=== PATIENT | male | born 1965 ===

== ENCOUNTER 2017-06-12 09:53 | Emergency (ER) | payer SELFPAY ==
[2017-06-12 10:07] VITALS: BP 131/91; PULSE 90; TEMP 98; O2SAT 99
--- NOTE | 2017-06-12 10:09 | ED PDOC ---
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 He has had pain and muscle spasms to both calves and difficulty walking due to knee pain bilaterally since this happened yesterday. Patient took Naprosyn yesterday and today which provided minimal relief of pain. No chest pain, shortness of breath or dyspnea on exertion. Patient denies any numbness or tingling to lower extremities. PMD: none Past Medical History Reviewed: Historical Data, Nursing Documentation, Vital Signs Vital Signs: Last Vital Signs Temp 98 F 06/12/17 10:06 Pulse 90 06/12/17 10:06 Resp BP 131/91 H 06/12/17 10:06 Pulse Ox 99 06/12/17 10:06 - Medical History PMH: HTN - Surgical History Surgical History: Appendectomy - Family History Family History: States: No Known Family Hx - Living Arrangements Living Arrangements: With Family - Social History Current smoker - smoking cessation education provided: No Alcohol: None Drugs: Denies - Home Medications Home Medications: Ambulatory Orders Medication Instructions Recorded Cyclobenzaprine [Cyclobenzaprine 10 mg PO TID PRN #20 tab 06/12/17 HCl] Naproxen [Naprosyn] 500 mg PO BID #20 tab 06/12/17 traMADol [Ultram] 50 mg PO TID PRN #15 tab 06/12/17 - Allergies Allergies/Adverse Reactions: Allergies Allergy/AdvReac Type Severity Reaction Status Date / Time No Known Allergies Allergy Verified 06/12/17 10:04 Wells Criteria for PE - Wells Criteria for Pulmonary Embolism Clinical Signs and Symptoms of DVT: Yes P.E is #1 Diagnosis, or Equally Likely: No Heart Rate >100: No Immobilization at least 3 days;Surgery previous 4 weeks: No Previous, objectively diagnosed PE or DVT: No Hemoptysis: No Malignancy w/treatment within 6 months, or palliative: No Total Score: 3 Review of Systems Constitutional: Negative for: Fever Cardiovascular: Negative for: Chest Pain Respiratory: Negative for: Shortness of Breath, SOB with Exertion Gastrointestinal: Negative for: Nausea, Vomiting Musculoskeletal: Positive for: Leg Pain (bilateral knee and calf pain) Physical Exam - Reviewed Nursing Documentation Reviewed: Yes Vital Signs Reviewed: Yes - Physical Exam Appears: Positive for: Well, Non-toxic, No Acute Distress Skin: Negative for: Rash Eye Exam: Positive for: Normal appearance Cardiovascular/Chest: Positive for: Regular Rate, Rhythm Respiratory: Positive for: Normal Breath Sounds. Negative for: Respiratory Distress Back: Negative for: L CVA Tenderness, R CVA Tenderness, Vertebral Tenderness Extremity: Positive for: Other (Mild swelling and tenderness noted to left knee with full range of motion, right knee is unremarkable, there is tenderness to both calves bilaterally with mild swelling to calves bilaterally, normal distal sensation bilateral lower extremities) Neurologic/Psych: Positive for: Alert, Oriented - ECG O2 Sat by Pulse Oximetry: 99 Pulse Ox Interpretation: Normal - Other Rad b/l knee x-rays X-Ray: Interpreted by Me, Viewed By Me X-Ray Interpretation: no fx, no dis, mild degenerative changes doppler bilateral legs X-Ray: Read By Radiologist X-Ray Interpretation: no DVT bilaterally Medical Decision Making Medical Decision Makin-year-old male with bilateral lower extremity pain. Plan: Doppler both legs X-ray both knees Toradol IM PO tramadol and flexeril Patient is aware of all diagnostic testing results. All questions answered. Patient feels much better after medications administered ED. Prescriptions provided for tramadol, Naprosyn and Flexeril. Patient was referred to clinic for follow-up. Disposition - Clinical Impression Clinical Impression: Bilateral knee pain, Muscle strain, lower leg - Patient ED Disposition Is Patient to be Admitted: No Counseled Patient/Family Regarding: Studies Performed, Diagnosis, Need For Followup, Rx Given - Disposition Referrals: [facility] [Outside] Disposition: Routine/Home Disposition Time: 13:00 Condition: STABLE Additional Instructions: Take prescription medications as directed as needed for pain. Follow-up with clinic in 2-3 days. Prescriptions: Cyclobenzaprine [Cyclobenzaprine HCl] 10 mg PO TID PRN #20 tab PRN Reason: Muscle Spasm Naproxen [Naprosyn] 500 mg PO BID #20 tab traMADol [Ultram] 50 mg PO TID PRN #15 tab PRN Reason: Pain, Moderate (4-7) Instructions: Leg Pain (ED), Knee Pain (ED), Muscle Strain (ED) Forms: [facility] (Montserratian), [facility] ED School/Work Excuse Print Language: MOZAMBICAN
--- NOTE | 2017-06-12 12:56 | US ---
PROCEDURE: Bilateral lower extremity venous duplex Doppler. HISTORY: bilateral calf pain COMPARISON: None available. TECHNIQUE: Bilateral common femoral, superficial femoral, popliteal and posterior tibial veins were evaluated. Flow was assessed with color Doppler, compressibility, assessment of phasic flow and augmentation response. FINDINGS: COMMON FEMORAL VEIN: Right CFV: Unremarkable. Left CFV: Unremarkable. SUPERFICIAL FEMORAL VEIN: Right SFV: Unremarkable. Left SFV: Unremarkable. POPLITEAL VEIN: Right Popliteal: Unremarkable. Left Popliteal: Unremarkable. POSTERIOR TIBIAL VEIN: Right PTV: Unremarkable. Left PTV: Unremarkable. OTHER FINDINGS: Ovoid hypoechoic structures are avascular at soft tissues overlying the left calf suspicious for possible thrombosis varices or lymph nodes. Other etiologies are possible. . Bilateral inguinal lymph nodes are identified mildly enlarged a 2.3 cm at the left and 1.5 cm the right. IMPRESSION: 1. No ultrasound evidence to suggest deep venous thrombosis. 2. Mild inguinal lymphadenopathy, left greater than right. 3. Hypoechoic ovoid foci are seen superficial to the left calf incidentally which may reflect thrombosed varices or small lymph nodes but are nonspecific in appearance overall. The latter may be present as definitive tubular shaped varices are not clearly demonstrated by the technologist.
--- NOTE | 2017-06-13 07:59 | RAD ---
PROCEDURE: Bilateral Knee Radiographs. HISTORY: pain to both knees COMPARISON: None. FINDINGS: BONES: No acute fracture or destructive bony lesion identified bilaterally. JOINTS: Limited joint space narrowing seen in the medial as well as medial patellofemoral joint compartments compatible with mild degenerative joint disease. SOFT TISSUES: Right Knee: Normal. Left Knee: Normal. JOINT EFFUSION: Right Knee: None. Left Knee: None. OTHER FINDINGS: None. IMPRESSION: Limited degenerative joint disease. No acute fracture, subluxation or dislocation. No destructive bony lesion bilaterally.
== END 2017-06-12 13:10 | disposition home or self-care (01) ==
LOC: H.ER 09:53
DX: M25.562 Pain in left knee (principal); M25.561 Pain in right knee; S86.919A Strain of unspecified muscle(s) and tendon(s) at lower leg level, unspecified leg, initial encounter
CPT/HCPCS: 73560; 93970; 96372; 99283; J1885

== ENCOUNTER 2017-06-20 18:35 | Emergency (ER) | payer OTHER, SELFPAY ==
[2017-06-20 19:08] VITALS: BP 133/88; PULSE 99; RESP 20; TEMP 98; O2SAT 100
[2017-06-20] MEDS ORDERED: Sodium Chloride 0.9% 1,000 ML IV STA (22:29)
[2017-06-20 23:07] LABS: BASO % 0.7 % (0.0-2.0); EOS # 0.4 K/uL (0.0-0.7); EOS % 7.1 % (0.0-4.0); HEMOGLOBIN 14.6 g/dL (12.0-18.0); LYMPH % 31.6 % (20.0-40.0); MEAN CELL VOLUME 94.2 fl (80.0-94.0); MEAN CORPUSCULAR HEMOGLOBIN 31.4 pg (27.0-31.0); MEAN CORPUSCULAR HGB CONC 33.3 g/dL (33.0-37.0); MEAN PLATELET VOLUME 7.1 fl (7.2-11.7); MONO # 0.5 K/uL (0.0-0.8); MONO % 7.4 % (0.0-10.0); NEUT # 3.4 K/uL (1.8-7.0); NEUT % 53.2 % (50.0-75.0); NRBC % 0.1 % (0.0-0.0); RBC 4.64 Mil/uL (4.40-5.90); RED CELL DISTRIBUTION WIDTH 12.7 % (11.5-14.5); WHITE BLOOD COUNT 6.3 K/uL (4.8-10.8)
[2017-06-20 23:25] LABS: ALB/GLOB RATIO 1.3 (1.0-2.1); ALT/SGPT 46 U/L (21-72); AST/SGOT 30 U/L (17-59); BLOOD UREA NITROGEN 19 mg/dl (9-20); CALCIUM 9.3 mg/dL (8.4-10.2); GFR AFRICAN-AMERICAN > 60; GFR NON-AFRICAN AMERICAN > 60
--- NOTE | 2017-06-21 00:22 | ED PDOC ---
Lower Extremity Pain/Injury Time Seen by Provider: 06/20/17 21:24 Chief Complaint (Nursing): Lower Extremity Problem/Injury Past Medical History Vital Signs: Last Vital Signs Temp 98 F 06/20/17 18:56 Pulse 99 H 06/20/17 18:56 Resp 20 06/20/17 18:56 BP 133/88 06/20/17 18:56 Pulse Ox 100 06/20/17 18:56 - Medical History PMH: HTN - Surgical History Surgical History: Appendectomy - Home Medications Home Medications: Ambulatory Orders Medication Instructions Recorded Cyclobenzaprine [Cyclobenzaprine 10 mg PO TID PRN #20 tab 06/12/17 HCl] Naproxen [Naprosyn] 500 mg PO BID #20 tab 06/12/17 traMADol [Ultram] 50 mg PO TID PRN #15 tab 06/12/17 oxyCODONE/Acetaminophen [Percocet 1 ea PO Q6H PRN #15 tab 06/21/17 5/325 mg Tab] - Allergies Allergies/Adverse Reactions: Allergies Allergy/AdvReac Type Severity Reaction Status Date / Time No Known Allergies Allergy Verified 06/12/17 10:04 - Laboratory Results Result Diagrams: 06/20/17 23:03 06/20/17 23:03 - ECG O2 Sat by Pulse Oximetry: 100 Disposition - Clinical Impression Clinical Impression: Gastrocnemius muscle strain - Patient ED Disposition Is Patient to be Admitted: No Counseled Patient/Family Regarding: Diagnosis, Need For Followup, Rx Given - Disposition Disposition: Routine/Home Disposition Time: 00:21 Condition: GOOD Prescriptions: oxyCODONE/Acetaminophen [Percocet 5/325 mg Tab] 1 ea PO Q6H PRN #15 tab PRN Reason: Pain, Severe (8-10) Instructions: Muscle Strain (ED) Forms: [employer] (Maltese), [facility] ED School/Work Excuse Print Language: BULGARIAN
== END 2017-06-21 00:32 | disposition home or self-care (01) ==
LOC: H.ER 18:35
DX: S86.819A Strain of other muscle(s) and tendon(s) at lower leg level, unspecified leg, initial encounter (principal); X50.9XXA Other and unspecified overexertion or strenuous movements or postures, initial encounter; Y99.0 Civilian activity done for income or pay; I10 Essential (primary) hypertension
CPT/HCPCS: 80053; 82550; 85025; 96374; 99283; J1885; J7040

== ENCOUNTER 2017-07-05 14:51 | Inpatient (IN) | payer SELFPAY ==
--- NOTE | 2017-07-05 16:28 | ED PDOC ---
Lower Extremity Pain/Injury Time Seen by Provider: 07/05/17 15:56 Chief Complaint (Nursing): Lower Extremity Problem/Injury Chief Complaint (Provider): Left leg pain History Per: Patient History/Exam Limitations: no limitations Onset/Duration Of Symptoms: Days Current Symptoms Are (Timing): Still Present Additional History Per: Patient Additional Complaint(s): 52yo male, presents to ED with complaints of left calf pain and swelling for the past 20 days. Patient states he was evaluated at this facility twice and was informed he did not have a blood clot. He states last week, he was evaluated in his PMD Dr. Wu's office and had another US done, which indicated a DVT in his left lower extremity. He denies any chest pain, weakness , shortness of breath. He has no other medical complaints. Past Medical History Reviewed: Historical Data, Nursing Documentation, Vital Signs Vital Signs: Last Vital Signs Temp 98.6 F 07/05/17 15:34 Pulse 108 H 07/05/17 15:34 Resp 16 07/05/17 15:34 BP 143/88 07/05/17 15:34 Pulse Ox 99 07/05/17 15:34 - Medical History PMH: HTN - Surgical History Surgical History: Appendectomy - Family History Family History: States: No Known Family Hx - Living Arrangements Living Arrangements: With Family - Social History Current smoker - smoking cessation education provided: No Ex-Smoker (has not smoked in the last 12 months): No Drugs: Denies - Home Medications Home Medications: Ambulatory Orders Medication Instructions Recorded Cilostazol [Pletal] 100 mg PO BID 07/05/17 Clopidogrel [Plavix] 75 mg PO DAILY 07/05/17 Losartan [Cozaar] 50 mg PO BID 07/05/17 hydroCHLOROthiazide [Hydrodiuril] 25 mg PO DAILY 07/05/17 - Allergies Allergies/Adverse Reactions: Allergies Allergy/AdvReac Type Severity Reaction Status Date / Time No Known Allergies Allergy Verified 06/12/17 10:04 Review of Systems ROS Statement: Except As Marked, All Systems Reviewed And Found Negative Cardiovascular: Negative for: Chest Pain Respiratory: Negative for: Shortness of Breath Musculoskeletal: Positive for: Leg Pain (left calf pain) Physical Exam - Reviewed Nursing Documentation Reviewed: Yes Vital Signs Reviewed: Yes - Physical Exam Appears: Positive for: Non-toxic Head Exam: Positive for: ATRAUMATIC, NORMAL INSPECTION, NORMOCEPHALIC Skin: Positive for: Normal Color Eye Exam: Positive for: Normal appearance Neck: Positive for: Supple Cardiovascular/Chest: Positive for: Regular Rate, Rhythm Respiratory: Positive for: Normal Breath Sounds Pulses-Radial (L): 2+ Pulses-Radial (R): 2+ Gastrointestinal/Abdominal: Positive for: Normal Exam Back: Positive for: Normal Inspection Extremity: Positive for: Normal ROM, Calf Tenderness (left calf tenderness, associated swelling as well.), Other (ecchymosis noted near left ankle ). Negative for: Deformity Neurologic/Psych: Positive for: Alert, Oriented. Negative for: Motor/Sensory Deficits - Laboratory Results Result Diagrams: 07/05/17 16:45 07/05/17 16:45 - ECG O2 Sat by Pulse Oximetry: 99 (RA) Pulse Ox Interpretation: Normal Medical Decision Making Medical Decision Making: Impression: Left calf pain Differential: DVT plan: -- Labs -- US Doppler Lower extremity Time: 1804 US Lower Extremity FINDINGS: Confirmation of thrombus in the left popliteal vein. Thrombophlebitis affecting superficial veins left calf IMPRESSION: No significant interval change compared to the prior examination(s). Nonocclusive thrombus distal popliteal vein. Thrombophlebitis superficial calf veins. Time: 1820 Patient informed of US findings and will be admitted under hospitalist. Dr. Goel, hospitalist simulation specialist aware. Also verified with FP resident and patient does not follow up at [facility]. Scribe Attestation: Documented by Letitia Carbajal acting as a scribe for Kenna Abarca MD. Provider Scribe Attestation: All medical record entries made by the Scribe were at my direction and personally dictated by me. I have reviewed the chart and agree that the record accurately reflects my personal performance of the history, physical exam, medical decision making, and the department course for this patient. I have also personally directed, reviewed, and agree with the discharge instructions and disposition. Disposition - Disposition Forms: [employer] (Pashto)
[2017-07-05 16:50] LABS: BASO # 0.1 K/uL (0.0-0.2); BASO % 0.9 % (0.0-2.0); EOS # 0.2 K/uL (0.0-0.7); EOS % 2.2 % (0.0-4.0); HEMOGLOBIN 15.4 g/dL (12.0-18.0); LYMPH # 2.2 K/uL (1.0-4.3); LYMPH % 25.2 % (20.0-40.0); MEAN CORPUSCULAR HEMOGLOBIN 31.8 pg (27.0-31.0); MEAN CORPUSCULAR HGB CONC 34.2 g/dL (33.0-37.0); MEAN PLATELET VOLUME 7.2 fl (7.2-11.7); MONO # 0.6 K/uL (0.0-0.8); MONO % 6.4 % (0.0-10.0); NEUT # 5.8 K/uL (1.8-7.0); NEUT % 65.3 % (50.0-75.0); NRBC % 0.1 % (0.0-0.0); RBC 4.84 Mil/uL (4.40-5.90); RED CELL DISTRIBUTION WIDTH 12.6 % (11.5-14.5); WHITE BLOOD COUNT 8.9 K/uL (4.8-10.8)
[2017-07-05 16:59] LABS: BLOOD UREA NITROGEN 16 mg/dl (9-20); CALCIUM 9.9 mg/dL (8.4-10.2); GFR AFRICAN-AMERICAN > 60; GFR NON-AFRICAN AMERICAN > 60
[2017-07-05 17:15] LABS: PARTIAL THROMBOPLASTIN TIME 35.4 Seconds (25.6-37.1); PROTHROMBIN TIME 11.6 Seconds (9.8-13.1)
--- NOTE | 2017-07-05 17:51 | US ---
PROCEDURE: Resume HISTORY: left lower leg swelling COMPARISON: July 05, 2017. Time of the most recent examination: 08:47 06/12/2017 bilateral lower extremity duplex venous sonography. TECHNIQUE: Real-time ultrasound scan of the veins with color flow, spectral waveform analysis and compression FINDINGS: Confirmation of thrombus in the left popliteal vein. Thrombophlebitis affecting superficial veins left calf IMPRESSION: No significant interval change compared to the prior examination(s). Nonocclusive thrombus distal popliteal vein. Thrombophlebitis superficial calf veins.
[2017-07-05] MEDS ORDERED: Enoxaparin 80 mg Syringe SC STA (18:33)
--- NOTE | 2017-07-05 19:24 | CP.PCM.HP ---
History of Present Illness - History of Present Illness History of Present Illness: 52 yo male with history of HTN complained of pain and swelling on the left leg since a month ago. Denied having trauma or injury. He was seen in a clinic twice and was informed that he did not have a clot on the leg. However his leg remained swollen and painful so he saw Dr Wu last week and had an ultrasound done which turned positive for DVT. He denied having SOB but admitted having left sided chest pain on and off for some time. Present on Admission - Present on Admission Any Indicators Present on Admission: Yes History of DVT/PE: Yes History of Uncontrolled Diabetes: No Urinary Catheter: No Decubitus Ulcer Present: No Review of Systems - Review of Systems All systems: reviewed and no additional remarkable complaints except (aside from those mentioned above, 12 point system review were negative by me) Past Patient History - Tetanus Immunizations Tetanus Immunization: Unknown - Past Medical History & Family History Past Medical History?: No Past Family History: Reviewed and not pertinent - Past Social History Smoking Status: Never Smoked Alcohol: None Drugs: Denies Home Situation {Lives}: With Family - CARDIAC Hx Hypertension: Yes - PSYCHIATRIC Hx Substance Use: No - SURGICAL HISTORY Hx Appendectomy: Yes - ANESTHESIA Hx Anesthesia: Yes Hx Anesthesia Reactions: No Meds Allergies/Adverse Reactions: Allergies Allergy/AdvReac Type Severity Reaction Status Date / Time No Known Allergies Allergy Verified 06/12/17 10:04 Physical Exam - Constitutional Appears: No Acute Distress - Head Exam Head Exam: ATRAUMATIC - Eye Exam Eye Exam: absent: Scleral icterus - ENT Exam ENT Exam: Mucous Membranes Moist - Neck Exam Neck exam: Negative for: Meningismus - Respiratory Exam Respiratory Exam: absent: Rhonchi, Wheezes, Respiratory Distress - Cardiovascular Exam Cardiovascular Exam: REGULAR RHYTHM, +S1, +S2 - GI/Abdominal Exam GI & Abdominal Exam: Soft. absent: Tenderness - Rectal Exam Rectal Exam: Deferred - Extremities Exam Extremities exam: Positive for: calf tenderness (left leg), pedal edema (left leg), pedal pulses present - Back Exam Back exam: absent: tenderness - Neurological Exam Neurological exam: Alert, Oriented x3 - Psychiatric Exam Psychiatric exam: Normal Affect - Skin Skin Exam: Dry, Intact Results - Vital Signs Recent Vital Signs: Last Vital Signs Temp 98.6 F 07/05/17 15:34 Pulse 108 H 07/05/17 15:34 Resp 16 07/05/17 15:34 BP 143/88 07/05/17 15:34 Pulse Ox 99 07/05/17 18:31 - Labs Result Diagrams: 07/05/17 16:45 07/05/17 16:45 Labs: Laboratory Results - last 24 hr 07/05/17 07/05/17 07/05/17 16:45 16:45 16:45 WBC 8.9 RBC 4.84 Hgb 15.4 Hct 45.0 MCV 93.0 MCH 31.8 H MCHC 34.2 RDW 12.6 Plt Count 330 MPV 7.2 Neut % (Auto) 65.3 Lymph % (Auto) 25.2 [place] % (Auto) 6.4 Eos % (Auto) 2.2 Baso % (Auto) 0.9 Neut # (Auto) 5.8 Lymph # (Auto) 2.2 [place] # (Auto) 0.6 Eos # (Auto) 0.2 Baso # (Auto) 0.1 PT 11.6 INR 1.0 APTT 35.4 Sodium 142 Potassium 3.8 Chloride 101 Carbon Dioxide 26 Anion Gap 19 BUN 16 Creatinine 0.8 Est GFR ( Amer) > 60 Est GFR (Non-Af Amer) > 60 Random Glucose 95 Calcium 9.9 Assessment & Plan - Assessment and Plan (Free Text) Assessment: 52 yo male with history of HTN complained of pain and swelling on the left leg since a month ago. Denied having trauma or injury. He was seen in a clinic twice and was informed that he did not have a clot on the leg. However his leg remained swollen and painful so he saw Dr Wu last week and had an ultrasound done which turned positive for DVT. He denied having SOB but admitted having left sided chest pain on and off for some time. 1. DVT, Left Leg CT angio of chest Lovenox 70mg SC q 12hrs 2. HTN BP stable Losartan 50mg PO q 12hrs HCTZ 25mg PO daily
[2017-07-05] MEDS ORDERED: Sodium Chloride 0.9% 50 ML IV ONE (19:36)
[2017-07-05] MEDS ORDERED: Iodixanol 320 MG/ML 100 ML BOTTLE IV ONE (19:36)
--- NOTE | 2017-07-05 21:22 | CT ---
EXAM: CT Angiography Chest With Intravenous Contrast CLINICAL HISTORY: 52 years old, male; Abnormal findings; Other: Dvt left leg; Additional info: Chest pain TECHNIQUE: Axial computed tomographic angiography images of the chest with intravenous contrast using pulmonary embolism protocol. All CT scans at this facility use one or more dose reduction techniques, viz.: automated exposure control; ma/kV adjustment per patient size (including targeted exams where dose is matched to indication; i.e. head); or iterative reconstruction technique. MIP reconstructed images were created and reviewed. Coronal and sagittal reformatted images were created and reviewed. CONTRAST: 90 mL of [id number] administered intravenously. COMPARISON: No relevant prior studies available. FINDINGS: Pulmonary arteries: Filling defect within segmental branch of right pulmonary artery. Aorta: No aneurysm. No dissection. Lungs: Mild atelectasis/scarring. No consolidation. Few calcified granulomas. Pleural space: No significant effusion. No pneumothorax. Heart: No cardiomegaly. No significant pericardial effusion. Bones/joints: No acute fracture. Soft tissues: Unremarkable. Lymph nodes: No pathologically enlarged lymph nodes. IMPRESSION: 1. Pulmonary emboli. 2. Incidental/non-acute findings are described above.
[2017-07-05] MEDS: Enoxaparin 80 mg Syringe SC SCH (23:00)
[2017-07-05 23:58] VITALS: RESP 18
[2017-07-06 05:34] LABS: INR 1.1 (0.9-1.2); PARTIAL THROMBOPLASTIN TIME 42.7 Seconds (25.6-37.1); PROTHROMBIN TIME 11.9 Seconds (9.8-13.1)
[2017-07-06 05:38] LABS: BLOOD UREA NITROGEN 19 mg/dl (9-20); CALCIUM 9.5 mg/dL (8.4-10.2); GFR AFRICAN-AMERICAN > 60; GFR NON-AFRICAN AMERICAN > 60
[2017-07-06 07:44] LABS: BASO % 0.2 % (0.0-2.0); EOS # 0.3 K/uL (0.0-0.7); HEMOGLOBIN 14.9 g/dL (12.0-18.0); LYMPH # 1.9 K/uL (1.0-4.3); LYMPH % 26.9 % (20.0-40.0); MEAN CELL VOLUME 92.6 fl (80.0-94.0); MEAN CORPUSCULAR HGB CONC 34.5 g/dL (33.0-37.0); MEAN PLATELET VOLUME 7.4 fl (7.2-11.7); MONO # 0.5 K/uL (0.0-0.8); MONO % 7.3 % (0.0-10.0); NEUT # 4.4 K/uL (1.8-7.0); NEUT % 61.6 % (50.0-75.0); NRBC % 0.2 % (0.0-0.0); RBC 4.66 Mil/uL (4.40-5.90); RED CELL DISTRIBUTION WIDTH 12.4 % (11.5-14.5); WHITE BLOOD COUNT 7.1 K/uL (4.8-10.8)
[2017-07-06] MEDS: Enoxaparin 80 mg Syringe SC SCH (08:50)
[2017-07-06] MEDS ORDERED: Pantoprazole 40 mg EC Tab PO SCH (09:00)
--- NOTE | 2017-07-06 11:53 | CP.PCM.DIS ---
Provider - Provider Date of Admission: 07/05/17 18:33 Attending physician: Robert Goel MD Primary care physician: Dr Yañez at [facility]. Consults: None. Time Spent in preparation of Discharge (in minutes): 30 Diagnosis - Discharge Diagnosis (1) DVT (deep venous thrombosis) Status: Acute Comment: -Pt initiated on Heparin SC and PO Warfarin. Pt will f/u on Tuesday with Dr Agustin to evaluated PT/INR level. -Pt will have blood drawn for PT/INR studies on tuesday. -Pt reinforced on medication adherence. (2) Pulmonary embolism Status: Acute Comment: -Pt initiated on Heparin SC and PO Warfarin. Pt will f/u on Tuesday with Dr Agustin to evaluated PT/INR level. -Pt will have blood drawn for PT/INR studies on tuesday. -Pt reinforced on medication adherence. (3) Hypertension Status: Acute Comment: -Continue Losartan and HCTZ. -F/U with PMD. Hospital Course - Lab Results Lab Results: Most Recent Lab Values WBC 7.1 K/uL (4.8-10.8) 07/06/17 04:20 RBC 4.66 Mil/uL (4.40-5.90) 07/06/17 04:20 Hgb 14.9 g/dL (12.0-18.0) 07/06/17 04:20 Hct 43.1 % (35.0-51.0) 07/06/17 04:20 MCV 92.6 fl (80.0-94.0) 07/06/17 04:20 MCH 32.0 pg (27.0-31.0) H 07/06/17 04:20 MCHC 34.5 g/dL (33.0-37.0) 07/06/17 04:20 RDW 12.4 % (11.5-14.5) 07/06/17 04:20 Plt Count 309 K/uL (130-400) 07/06/17 04:20 MPV 7.4 fl (7.2-11.7) 07/06/17 04:20 Neut % (Auto) 61.6 % (50.0-75.0) 07/06/17 04:20 Lymph % (Auto) 26.9 % (20.0-40.0) 07/06/17 04:20 [place] % (Auto) 7.3 % (0.0-10.0) 07/06/17 04:20 Eos % (Auto) 4.0 % (0.0-4.0) 07/06/17 04:20 Baso % (Auto) 0.2 % (0.0-2.0) 07/06/17 04:20 Neut # (Auto) 4.4 K/uL (1.8-7.0) 07/06/17 04:20 Lymph # (Auto) 1.9 K/uL (1.0-4.3) 07/06/17 04:20 [place] # (Auto) 0.5 K/uL (0.0-0.8) 07/06/17 04:20 Eos # (Auto) 0.3 K/uL (0.0-0.7) 07/06/17 04:20 Baso # (Auto) 0.0 K/uL (0.0-0.2) 07/06/17 04:20 PT 11.9 Seconds (9.8-13.1) 07/06/17 04:20 INR 1.1 (0.9-1.2) 07/06/17 04:20 APTT 42.7 Seconds (25.6-37.1) H D 07/06/17 04:20 Sodium 141 mmol/l (132-148) 07/06/17 04:20 Potassium 4.0 MMOL/L (3.6-5.0) 07/06/17 04:20 Chloride 102 mmol/L (98-107) 07/06/17 04:20 Carbon Dioxide 28 mmol/L (22-30) 07/06/17 04:20 Anion Gap 15 (10-20) 07/06/17 04:20 BUN 19 mg/dl (9-20) 07/06/17 04:20 Creatinine 0.9 mg/dl (0.8-1.5) 07/06/17 04:20 Est GFR ( Amer) > 60 07/06/17 04:20 Est GFR (Non-Af Amer) > 60 07/06/17 04:20 Random Glucose 96 mg/dL (75-110) 07/06/17 04:20 Calcium 9.5 mg/dL (8.4-10.2) 07/06/17 04:20 Troponin I < 0.0120 ng/mL (0.00-0.120) 07/05/17 20:46 - Hospital Course Hospital Course: 52 y/o M with a PMHx of HTN was admitted for evaluation and management of L DVT. Pt reports having a minor accident on 06/11/17 after lifting/pushing a very heavy box, pt felt a sharp electrical pain on both legs. Since them pt has been feeling pain in L lower leg, pt was evaluated twice at ER with US doppler without identification of DVT. Pt visited Dr Wu last week who ordered a repeat US doppler. This study was performed today and detected a DVT. - US Duplex showed a non-occlusive thrombus distal L popliteal vein and thrombophlebitis superficial calf veins. - CT Chest showed a pulmonary emboli within segmental branch of R pulmonary artery. Pt was initiated on Heparin SC Q12 yesterday and PO Warfarin today. Pt will get blood drawn for PT/IN in 2 days and will f/u with Dr Agustin at [facility] for evaluation of Warfarin therapeutic dose. Pt discharged in stable condition. Warfarin for 5 days and Heparin SC for 7 days prescribed. Pt will come to hospital daily for Heparin administration. - Date & Time of H&P Date of H&P: 07/05/17 Time of H&P: 19:17 Discharge Exam - Head Exam Head Exam: ATRAUMATIC - Eye Exam Eye Exam: EOMI, Normal appearance - ENT Exam ENT Exam: Mucous Membranes Moist - Neck Exam Neck exam: Full Rom - Respiratory Exam Respiratory Exam: Clear to PA & Lateral, NORMAL BREATHING PATTERN, UNREMARKABLE - Cardiovascular Exam Cardiovascular Exam: REGULAR RHYTHM, +S1, +S2 - GI/Abdominal Exam GI & Abdominal Exam: Normal Bowel Sounds, Soft. absent: Distended, Guarding - Extremities Exam Additional comments: R Lower EXT: presence of small scattered ecchymosis on R foot. No tenderness over popliteal fossa. L Lower EXT: presence of small scattered ecchymosis on L foot, presence of muscle strain (~2cm circumference swelling) over L calf area, mild tenderness on medial calf. No tenderness over lateral aspect and most of calf muscle. No tenderness over popliteal fossa. - Neurological Exam Neurological exam: Alert, Oriented x3 - Psychiatric Exam Psychiatric exam: Normal Mood Discharge Plan - Discharge Medications Prescriptions: Enoxaparin [Lovenox] 100 mg SQ DAILY #7 syr Warfarin [Coumadin] 5 mg PO 1800 #5 tab - Follow Up Plan Condition: GOOD Disposition: HOME/ ROUTINE Instructions: Warfarin (By mouth), Pulmonary Embolism (DC), Deep Venous Thrombosis (DC) Additional Instructions: -Please follow-up with Dr Agustin at [facility] Clinic on Tuesday07/08/17 at 3pm. -Please come to the hospital every day for Heparin Injection administration. -Please take Warfarin daily as directed. - -Por favor atienda a hernandez hillary con Dr Agustin el viernes a las 3pm. -Venir al hospital a diario para la administracion de la injeccion de Heparin. Por favor markir crystal. -[facility] via oral a diario josiah se le fue instruido. Referrals: [facility] [place] [Outside]
[2017-07-06 13:20] VITALS: BP 120/77; PULSE 88; TEMP 97.3; O2SAT 96
== END 2017-07-06 15:26 | disposition home or self-care (01) | DRG 543 ==
LOC: H.ER 14:51 → H.ERHOLD 18:33 → H.TEL 22:07
DX: I80.02 Phlebitis and thrombophlebitis of superficial vessels of left lower extremity (principal); I26.99 Other pulmonary embolism without acute cor pulmonale; I10 Essential (primary) hypertension; Z79.02 Long term (current) use of antithrombotics/antiplatelets

== ENCOUNTER 2017-07-14 09:16 | Inpatient (IN) | payer SELFPAY ==
[2017-07-14 09:35] VITALS: BMI 30.2
--- NOTE | 2017-07-14 10:00 | ED PDOC ---
Syncope/Near Syncope/Dizziness Time Seen by Provider: 07/14/17 09:44 Chief Complaint (Nursing): Dizziness/Lightheaded History Per: Patient Onset/Duration Of Symptoms: Days (1) Current Symptoms Are (Timing): Still Present Possible Causative Factor(s): Vertigo Fall Associated With With Symptoms: No Severity: Moderate Pain Scale Rating Of: 1 Additional Complaint(s): Dizziness assoc with nausea since this AM Assoc with headache. Dizziness worse with change in head podition. Denies, chest pain, palpitations or SOB. On Coumadin for recently dx'ed DVT/PE - Risk Factors PE Risk Factors: Pos: Previous DVT, Previous PE Past Medical History Vital Signs: Last Vital Signs Temp Pulse 93 H 07/14/17 09:36 Resp 19 07/14/17 09:36 BP 138/80 07/14/17 09:36 Pulse Ox 98 07/14/17 09:36 - Medical History PMH: Deep Vein Thrombosis, HTN, Hypercholesterolemia, Pulmonary Embolism Denies: Chronic Kidney Disease - Surgical History Surgical History: Appendectomy - Family History Family History: States: Unknown Family Hx - Home Medications Home Medications: Ambulatory Orders Medication Instructions Recorded Cilostazol [Pletal] 100 mg PO BID 07/05/17 Clopidogrel [Plavix] 75 mg PO DAILY 07/05/17 Losartan [Cozaar] 50 mg PO BID 07/05/17 hydroCHLOROthiazide [Hydrodiuril] 25 mg PO DAILY 07/05/17 Enoxaparin [Lovenox] 100 mg SQ DAILY #7 syr 07/06/17 Warfarin [Coumadin] 5 mg PO 1800 #5 tab 07/06/17 - Allergies Allergies/Adverse Reactions: Allergies Allergy/AdvReac Type Severity Reaction Status Date / Time No Known Allergies Allergy Verified 06/12/17 10:04 Review of Systems ROS Statement: Except As Marked, All Systems Reviewed And Found Negative Cardiovascular: Negative for: Chest Pain, Palpitations Respiratory: Negative for: Shortness of Breath Gastrointestinal: Negative for: Nausea, Vomiting Neurological: Positive for: Headache, Dizziness Physical Exam - Reviewed Nursing Documentation Reviewed: Yes Vital Signs Reviewed: Yes - Physical Exam Appears: Positive for: Non-toxic, No Acute Distress Head Exam: Positive for: ATRAUMATIC, NORMAL INSPECTION, NORMOCEPHALIC Skin: Positive for: Normal Color, Warm, DRY Eye Exam: Positive for: EOMI, Normal appearance, PERRL ENT: Positive for: Normal ENT Inspection Neck: Positive for: Normal, Painless ROM Cardiovascular/Chest: Positive for: Regular Rate, Rhythm Respiratory: Positive for: CNT, Normal Breath Sounds Gastrointestinal/Abdominal: Positive for: Normal Exam, Bowel Sounds, Soft Back: Positive for: Normal Inspection Extremity: Positive for: Normal ROM. Negative for: Calf Tenderness, Swelling Neurologic/Psych: Positive for: Alert, Oriented - Laboratory Results Result Diagrams: 07/14/17 10:15 07/14/17 10:15 - ECG O2 Sat by Pulse Oximetry: 98 Disposition - Clinical Impression Clinical Impression: Dizziness, Coagulopathy - Patient ED Disposition Is Patient to be Admitted: Yes - Disposition Disposition Time: 12:01 Condition: FAIR Forms: [employer] (Pashto) - Pt Status Changed To: Hospital Disposition Of: Observation - POA Present On Arrival: None
[2017-07-14 10:34] LABS: BASO # 0.1 K/uL (0.0-0.2); BASO % 1.1 % (0.0-2.0); EOS # 0.3 K/uL (0.0-0.7); EOS % 5.3 % (0.0-4.0); HEMOGLOBIN 14.9 g/dL (12.0-18.0); LYMPH # 1.5 K/uL (1.0-4.3); LYMPH % 27.8 % (20.0-40.0); MEAN CELL VOLUME 92.5 fl (80.0-94.0); MEAN CORPUSCULAR HEMOGLOBIN 32.1 pg (27.0-31.0); MEAN CORPUSCULAR HGB CONC 34.8 g/dL (33.0-37.0); MEAN PLATELET VOLUME 7.4 fl (7.2-11.7); MONO # 0.5 K/uL (0.0-0.8); MONO % 8.8 % (0.0-10.0); NEUT # 3.1 K/uL (1.8-7.0); NRBC % 0.2 % (0.0-0.0); RBC 4.65 Mil/uL (4.40-5.90); RED CELL DISTRIBUTION WIDTH 12.9 % (11.5-14.5); WHITE BLOOD COUNT 5.4 K/uL (4.8-10.8)
--- NOTE | 2017-07-14 10:42 | CT ---
PROCEDURE: CT HEAD WITHOUT CONTRAST. HISTORY: r/o bleed COMPARISON: None available. TECHNIQUE: Axial computed tomography images were obtained through the head/brain without intravenous contrast. Radiation dose: Total exam DLP = 857.7 mGy-cm. This CT exam was performed using one or more of the following dose reduction techniques: Automated exposure control, adjustment of the mA and/or kV according to patient size, and/or use of iterative reconstruction technique. FINDINGS: HEMORRHAGE: No intracranial hemorrhage. BRAIN: No mass effect or edema. No atrophy or chronic microvascular ischemic changes. VENTRICLES: Unremarkable. No hydrocephalus. CALVARIUM: Unremarkable. PARANASAL SINUSES: Unremarkable as visualized. No significant inflammatory changes. MASTOID AIR CELLS: Unremarkable as visualized. No inflammatory changes. OTHER FINDINGS: None. IMPRESSION: No acute intracranial pathology.
[2017-07-14 10:58] LABS: ALB/GLOB RATIO 1.3 (1.0-2.1); ALT/SGPT 197 U/L (21-72); AST/SGOT 87 U/L (17-59); BLOOD UREA NITROGEN 23 mg/dl (9-20); CALCIUM 8.8 mg/dL (8.4-10.2); GFR AFRICAN-AMERICAN > 60; GFR NON-AFRICAN AMERICAN > 60
[2017-07-14 11:03] LABS: INR 4.9 (0.9-1.2); PROTHROMBIN TIME 56.5 Seconds (9.8-13.1)
--- NOTE | 2017-07-14 14:19 | CP.PCM.HP ---
History of Present Illness - History of Present Illness History of Present Illness: CC: Dizziness HPI: 52 y/o man w/ pmh of DVT/PE 05/2017 and 07/05/2017 and HTN presents to ED w / dizziness. The patient reports dizziness started this morning when he woke up. Patient reports associated pulsating headache, sweating, fleeting palpitation, and nausea but no vomiting. The patient took tylenol w/ mild relief. The patient is on warfarin 5 mg daily and completed course of lovenox 100 mg SC yesterday. The patient denies epistaxis, bleeding form gums, hemoptysis, hematuria, hematochezia, or melena. The patient reports mild left calf pain which is improved but still requires crutches for assistance to ambulate. The patient was discharged 07/06/2017 for DVT/PE and bridged to warfarin w/ lovenox. The patient has no other complaints. The patient denies SOB, chest pain, abdominal pain, dysuria, or fever. PMD: [facility] (saw Dr. Foster 07/13/2017) PMH: DVT/PE 05/2017 and 07/05/2017 and HTN allergies: NKDA meds: HCTZ 25 mg PO daily, losartan 50 mg PO daily, warfarin 5 mg PO daily PSH: appendectomy in childhood FAM: father 78 y/o HTN, mother 70 y/o healthy SOC: denies smoking, alcohol, and drugs ROS: 12 points assessed and negative unless otherwise reported in HPI ED course: vitals: 97.0 F, 93 beats/min, 138/80 mm Hg, O2 98% RA CBC: 5.4>14.9/43.0<271 CMP: 140/4.4, 102/25, 23/0.7, glucose 94, AST 84, ALT 197, alk phos 69 PT: 56.5 INR: 4.9 EKG: NSR, no acute ST elevation/depression, no prolonged QTc, QRS, RI, no T wave inversion Head CT w/o contrast: no acute intracranial pathology, no intracranial hemorrhage given meclizine 25 mg PO once Present on Admission - Present on Admission Any Indicators Present on Admission: Yes History of DVT/PE: Yes History of Uncontrolled Diabetes: No Urinary Catheter: No Decubitus Ulcer Present: No Review of Systems - Review of Systems All systems: reviewed and no additional remarkable complaints except - Constitutional Constitutional: Headache. absent: Fever - EENT Eyes: Blurred Vision Nose/Mouth/Throat: absent: Epistaxis - Cardiovascular Cardiovascular: Palpitations. absent: Chest Pain, Leg Edema - Respiratory Respiratory: absent: Cough, Dyspnea, Hemoptysis, Wheezing - Gastrointestinal Gastrointestinal: Nausea. absent: Coffee Ground Emesis, Diarrhea, Hematemesis, Hematochezia, Melena, Vomiting - Genitourinary Genitourinary: absent: Dysuria, Hematuria - Musculoskeletal Additional comments: reports mild left calf pain (chronic) - Integumentary Integumentary: absent: Rash - Neurological Neurological: As Per HPI, Dizziness, Headaches Past Patient History - Tetanus Immunizations Tetanus Immunization: Unknown - Past Medical History & Family History Past Medical History?: Yes - Past Social History Smoking Status: Never Smoked - CARDIAC Hx Hypercholesterolemia: Yes Hx Hypertension: Yes - PULMONARY Hx Pulmonary Embolism: Yes - NEUROLOGICAL Hx Neurological Disorder: No - HEENT Hx HEENT Problems: No - RENAL Hx Chronic Kidney Disease: No - ENDOCRINE/METABOLIC Hx Endocrine Disorders: No - HEMATOLOGICAL/ONCOLOGICAL Hx Blood Disorders: No - INTEGUMENTARY Hx Dermatological Problems: No - MUSCULOSKELETAL/RHEUMATOLOGICAL Hx Musculoskeletal Disorders: No Hx Falls: No - GASTROINTESTINAL Hx Gastrointestinal Disorders: No - GENITOURINARY/GYNECOLOGICAL Hx Genitourinary Disorders: No - PSYCHIATRIC Hx Emotional Abuse: No Hx Physical Abuse: No Hx Substance Use: No - SURGICAL HISTORY Hx Appendectomy: Yes - ANESTHESIA Hx Anesthesia: Yes Hx Anesthesia Reactions: No Meds Allergies/Adverse Reactions: Allergies Allergy/AdvReac Type Severity Reaction Status Date / Time No Known Allergies Allergy Verified 06/12/17 10:04 Physical Exam - Constitutional Appears: No Acute Distress - Head Exam Head Exam: ATRAUMATIC, NORMAL INSPECTION, NORMOCEPHALIC - Eye Exam Eye Exam: EOMI, Normal appearance, PERRL. absent: Scleral icterus Pupil Exam: NORMAL ACCOMODATION, PERRL - ENT Exam ENT Exam: Mucous Membranes Moist - Neck Exam Neck exam: Positive for: Full Rom. Negative for: Tenderness - Respiratory Exam Respiratory Exam: Clear to Auscultation Bilateral. absent: Decreased Breath Sounds, Rales, Rhonchi, Wheezes, Respiratory Distress - Cardiovascular Exam Cardiovascular Exam: REGULAR RHYTHM. absent: Tachycardia - GI/Abdominal Exam GI & Abdominal Exam: Normal Bowel Sounds, Soft. absent: Distended, Tenderness - Extremities Exam Extremities exam: Positive for: calf tenderness Additional comments: mild left calf tenderness (chronic) - Back Exam Back exam: absent: rash noted - Neurological Exam Neurological exam: Alert, CN II-XII Intact, Oriented x3 Additional comments: requires crutches for assistance in ambulation - Skin Skin Exam: Dry, Intact, Normal Color, Warm Results - Vital Signs Recent Vital Signs: Last Vital Signs Temp 97 F L 07/14/17 12:49 Pulse 82 07/14/17 12:49 Resp 18 07/14/17 12:49 BP 129/94 H 07/14/17 12:49 Pulse Ox 98 07/14/17 12:49 - Labs Result Diagrams: 07/14/17 10:15 07/14/17 10:15 Labs: Laboratory Results - last 24 hr 07/14/17 07/14/17 07/14/17 10:15 10:15 10:15 WBC 5.4 RBC 4.65 Hgb 14.9 Hct 43.0 MCV 92.5 MCH 32.1 H MCHC 34.8 RDW 12.9 Plt Count 271 MPV 7.4 Neut % (Auto) 57.0 Lymph % (Auto) 27.8 [place] % (Auto) 8.8 Eos % (Auto) 5.3 H Baso % (Auto) 1.1 Neut # (Auto) 3.1 Lymph # (Auto) 1.5 [place] # (Auto) 0.5 Eos # (Auto) 0.3 Baso # (Auto) 0.1 PT 56.5 H* D INR 4.9 H D Sodium 140 Potassium 4.4 Chloride 102 Carbon Dioxide 25 Anion Gap 17 BUN 23 H Creatinine 0.7 L Est GFR ( Amer) > 60 Est GFR (Non-Af Amer) > 60 Random Glucose 94 Calcium 8.8 Total Bilirubin 0.7 AST 87 H D ALT 197 H D Alkaline Phosphatase 69 Total Protein 7.2 Albumin 4.0 Globulin 3.2 Albumin/Globulin Ratio 1.3 Assessment & Plan - Assessment and Plan (Free Text) Assessment: 52 y/o man w/ pmh of DVT/PE 05/2017 and 07/05/2017 and HTN presents to ED w/ dizziness Plan: Dizziness - reports symptoms this morning - vitals: 97.0 F, 93 beats/min, 138/80 mm Hg, O2 98% RA - CBC: 5.4>14.9/43.0<271 - CMP: 140/4.4, 102/25, 23/0.7, glucose 94, AST 84, ALT 197, alk phos 69 - PT: 56.5 - INR: 4.9 - EKG: NSR, no acute ST elevation/depression, no prolonged QTc, QRS, RI, no T wave inversion - Head CT w/o contrast: no acute intracranial pathology, no intracranial hemorrhage - given meclizine 25 mg PO once - admit to [facility] - orthostatic BP - f/u repeat EKG - monitor for acute changes DVT/PE - patient has history of DVT/PE 05/2017 and 07/05/2017 - on warfarin 5 mg daily - completed lovenox 100 mg SC bridge to warfarin yesterday 07/13/2017 - INR 4.9, supratherapeutic - hold warfarin - f/u PT/INR - monitor for acute changes HTN - controlled w/ medication - c/w HCTZ 25 mg PO daily, losartan 50 mg PO daily - monitor for acute changes Deconditioning - requires crutches for ambulation - physical therapy consult ordered Prophylactic measures - DVT: anticoagulation held for now due to supratherapeutic INR
[2017-07-15 06:42] LABS: BASO % 0.5 % (0.0-2.0); EOS # 0.3 K/uL (0.0-0.7); EOS % 5.9 % (0.0-4.0); HEMOGLOBIN 15.6 g/dL (12.0-18.0); LYMPH # 1.7 K/uL (1.0-4.3); LYMPH % 28.7 % (20.0-40.0); MEAN CELL VOLUME 92.1 fl (80.0-94.0); MEAN CORPUSCULAR HEMOGLOBIN 31.5 pg (27.0-31.0); MEAN CORPUSCULAR HGB CONC 34.2 g/dL (33.0-37.0); MEAN PLATELET VOLUME 7.5 fl (7.2-11.7); MONO # 0.4 K/uL (0.0-0.8); MONO % 6.7 % (0.0-10.0); NEUT # 3.4 K/uL (1.8-7.0); NEUT % 58.2 % (50.0-75.0); NRBC % 0.1 % (0.0-0.0); RBC 4.94 Mil/uL (4.40-5.90); RED CELL DISTRIBUTION WIDTH 12.6 % (11.5-14.5); WHITE BLOOD COUNT 5.8 K/uL (4.8-10.8)
[2017-07-15 06:50] LABS: INR 3.8 (0.9-1.2); PARTIAL THROMBOPLASTIN TIME 66.9 Seconds (25.6-37.1)
[2017-07-15 06:54] LABS: BLOOD UREA NITROGEN 20 mg/dl (9-20); CALCIUM 9.7 mg/dL (8.4-10.2); GFR AFRICAN-AMERICAN > 60; GFR NON-AFRICAN AMERICAN > 60
--- NOTE | 2017-07-15 09:00 | CP.PCM.PN ---
Subjective - Date & Time of Evaluation Date of Evaluation: 07/15/17 Time of Evaluation: 06:55 - Subjective Subjective: Patient seen and examined this morning bedside. There are no acute events overnight, NAD. The patient reports dizziness does not occur while laying down , occurs only when sitting up. The patient reports left calf tenderness is the same chronic pain. The patient has no other complaints. Objective - Vital Signs/Intake and Output Vital Signs (last 24 hours): Temp Pulse Resp BP Pulse Ox 97.7 F 76 18 109/72 96 07/15/17 08:05 07/15/17 08:05 07/15/17 08:05 07/15/17 08:50 07/15/17 08:05 - Medications Medications: Current Medications Acetaminophen (Tylenol 325mg Tab) 650 mg PO Q6 PRN PRN Reason: Headache Hydrochlorothiazide (Hydrodiuril) 25 mg PO DAILY [facility] Last Admin: 07/15/17 08:50 Dose: 25 mg Losartan Potassium (Cozaar) 50 mg PO BID [facility] Last Admin: 07/15/17 08:50 Dose: 50 mg - Labs Labs: 07/15/17 05:00 07/15/17 05:00 PT 43.0 Seconds (9.8-13.1) H* D 07/15/17 05:00 INR 3.8 (0.9-1.2) H D 07/15/17 05:00 APTT 66.9 Seconds (25.6-37.1) H 07/15/17 05:00 - Constitutional Appears: Non-toxic, No Acute Distress - Head Exam Head Exam: ATRAUMATIC, NORMAL INSPECTION, NORMOCEPHALIC - Eye Exam Eye Exam: EOMI, Normal appearance, PERRL Pupil Exam: NORMAL ACCOMODATION - ENT Exam ENT Exam: Mucous Membranes Moist - Neck Exam Neck Exam: Full ROM. absent: Tenderness - Respiratory Exam Respiratory Exam: Clear to Ausculation Bilateral, NORMAL BREATHING PATTERN. absent: Decreased Breath Sounds, Rales, Rhonchi, Wheezes, Respiratory Distress - Cardiovascular Exam Cardiovascular Exam: REGULAR RHYTHM. absent: Tachycardia - GI/Abdominal Exam GI & Abdominal Exam: Soft, Normal Bowel Sounds. absent: Distended, Tenderness - Extremities Exam Extremities Exam: Calf Tenderness, Full ROM. absent: Pedal Edema Additional comments: mild left calf tenderness (chronic) - Neurological Exam Neurological Exam: Alert, Awake, Oriented x3 Additional comments: requires crutches for assistance in ambulation - Skin Skin Exam: Dry, Intact, Normal Color, Warm Assessment and Plan - Assessment and Plan (Free Text) Assessment: 52 y/o man w/ pmh of DVT/PE 05/2017 and 07/05/2017 and HTN presents to ED w/ dizziness Plan: Dizziness - possibly secondary to vestibular pathology, benign positional paroxysmal vertigo vs central vertigo - CBC: 5.8>15.6/45.5<283 - CMP: 140/4.0, 99/27, 20/0.9, glucose 94 - PT: 43.0 - INR: 3.8 - EKG: NSR, no acute ST elevation/depression, no prolonged QTc, QRS, AR, no T wave inversion - Head CT w/o contrast: no acute intracranial pathology, no intracranial hemorrhage - given meclizine 25 mg PO once - c/w meclizine 25 mg PO TID - orthostatic BP WNL - carotid artery US: normal duplex doppler of the cervical carotid and vertebral arteries - neurology consulted, Dr. Chua, recommendations appreciated - f/u repeat EKG - f/u folate, vit B12, TSH, vit D25-OH - f/u echo - monitor for acute changes DVT/PE - patient has history of DVT/PE 05/2017 and 07/05/2017 - on warfarin 5 mg daily - completed lovenox 100 mg SC bridge to warfarin 07/13/2017 - INR 3.8, remains supratherapeutic - hold warfarin - f/u PT/INR - monitor for acute changes - patient to complete 3 months of anticoagulation - DVT due to distal left lower extremity - no work up for hypercoagulable state due to 1st event of provoked DVT/PE (work -related trauma in 05/2017) HTN - controlled w/ medication - c/w HCTZ 25 mg PO daily, losartan 50 mg PO daily - monitor for acute changes Deconditioning - requires crutches for ambulation - physical therapy consult ordered Prophylactic measures - DVT: anticoagulation held for now due to supratherapeutic INR
--- NOTE | 2017-07-15 13:20 | US ---
PROCEDURE: Duplex ultrasound of the carotid and vertebral arteries. HISTORY: Dizziness, history of unprovoked dvt COMPARISON: None available. TECHNIQUE: Grayscale and duplex Doppler evaluation of the cervical carotid and vertebral arteries were performed. The common carotid, carotid bifurcations and cervical ICA and proximal ECA were evaluated. The vertebral arteries were evaluated for gross patency and direction. FINDINGS: RIGHT CAROTID ARTERIES: Common Carotid Artery: Normal. Maximal flow velocity of 70.3 cm/s. Carotid Bifurcation: Normal. Internal Carotid Artery:Normal. Maximal flow velocity of 82.0 cm/s. External Carotid Artery (proximal branches): Normal. Maximal flow velocity of 92.2 cm/s. ICA/CCA Ratio: 1.2 LEFT CAROTID ARTERIES: Common Carotid Artery: Normal. Maximal flow velocity of 78.5 cm/s. Carotid Bifurcation: Normal. Internal Carotid Artery:Normal. Maximal flow velocity of 86.0 cm/s. External Carotid Artery (proximal branches): Normal. Maximal flow velocity of 92.7 cm/s. ICA/CCA Ratio: 1.1 VERTEBRAL ARTERIES: Right Vertebral Artery: Patent. Antegrade flow. Left Vertebral Artery: Patent. Antegrade flow. OTHER FINDINGS: None. IMPRESSION: Normal Duplex Doppler of the cervical carotid and vertebral arteries.
--- NOTE | 2017-07-15 23:50 | CARD ---
APPROVED REPORT EKG Measurement Heart [id number] <Conclusion> Normal sinus rhythm Normal ECG
[2017-07-16 08:02] VITALS: RESP 19; TEMP 97.3; O2SAT 96
--- NOTE | 2017-07-16 09:23 | CP.PCM.PN ---
Subjective - Date & Time of Evaluation Date of Evaluation: 07/16/17 Time of Evaluation: 08:25 - Subjective Subjective: Patient seen and examined this morning bedside. There are no acute events overnight, NAD. The patient reports dizziness is resolved this morning. The patient reports left calf tenderness is the same chronic pain. The patient has no other complaints. Objective - Vital Signs/Intake and Output Vital Signs (last 24 hours): Temp Pulse Resp BP Pulse Ox 97.3 F L 83 19 132/82 96 07/16/17 08:01 07/16/17 08:57 07/16/17 08:01 07/16/17 08:57 07/16/17 08:01 - Medications Medications: Current Medications Acetaminophen (Tylenol 325mg Tab) 650 mg PO Q6 PRN PRN Reason: Headache Hydrochlorothiazide (Hydrodiuril) 25 mg PO DAILY [facility] Last Admin: 07/15/17 08:50 Dose: 25 mg Losartan Potassium (Cozaar) 50 mg PO BID [facility] Last Admin: 07/16/17 08:57 Dose: 50 mg Meclizine HCl (Antivert) 25 mg PO Q8 [facility] Last Admin: 07/16/17 08:57 Dose: 25 mg - Labs Labs: 07/15/17 05:00 07/15/17 05:00 PT 43.0 Seconds (9.8-13.1) H* D 07/15/17 05:00 INR 3.8 (0.9-1.2) H D 07/15/17 05:00 APTT 66.9 Seconds (25.6-37.1) H 07/15/17 05:00 - Constitutional Appears: No Acute Distress - Head Exam Head Exam: ATRAUMATIC, NORMAL INSPECTION, NORMOCEPHALIC - Eye Exam Eye Exam: EOMI, Normal appearance, PERRL Pupil Exam: NORMAL ACCOMODATION - ENT Exam ENT Exam: Mucous Membranes Moist - Neck Exam Neck Exam: Full ROM. absent: Tenderness - Respiratory Exam Respiratory Exam: Clear to Ausculation Bilateral. absent: Decreased Breath Sounds, Rales, Rhonchi, Wheezes, Respiratory Distress - Cardiovascular Exam Cardiovascular Exam: REGULAR RHYTHM. absent: Tachycardia - GI/Abdominal Exam GI & Abdominal Exam: Soft, Normal Bowel Sounds. absent: Distended, Tenderness - Extremities Exam Extremities Exam: Calf Tenderness Additional comments: mild left calf tenderness (chronic), no palpable cord, but firm palpable mass ( chronic) - Neurological Exam Neurological Exam: Alert, Awake, Oriented x3 - Skin Skin Exam: Dry, Intact, Normal Color, Warm Assessment and Plan - Assessment and Plan (Free Text) Assessment: 52 y/o man w/ pmh of DVT/PE 05/2017 and 07/05/2017 and HTN presents to ED w/ dizziness Plan: Dizziness - improved - possibly secondary to vestibular pathology, benign positional paroxysmal vertigo vs central vertigo - CBC: 5.8>15.6/45.5<283 - CMP: 140/4.0, 99/27, 20/0.9, glucose 94 - PT: 43.0 - INR: 3.8 - EKG: NSR, no acute ST elevation/depression, no prolonged QTc, QRS, DC, no T wave inversion - Head CT w/o contrast: no acute intracranial pathology, no intracranial hemorrhage - given meclizine 25 mg PO once - c/w meclizine 25 mg PO TID - orthostatic BP WNL - carotid artery US: normal duplex doppler of the cervical carotid and vertebral arteries - neurology consulted, Dr. Chua, recommendations appreciated - f/u repeat EKG - folate 16.0, vit B12 345 , TSH 3.24 , vit D25-OH 26.2 - f/u echo - monitor for acute changes DVT/PE - patient has history of DVT/PE 05/2017 and 07/05/2017 - on warfarin 5 mg daily - completed lovenox 100 mg SC bridge to warfarin 07/13/2017 - INR 3.8, remains supratherapeutic - hold warfarin - f/u PT/INR - monitor for acute changes - patient to complete 3 months of anticoagulation - DVT due to distal left lower extremity - no work up for hypercoagulable state due to 1st event of provoked DVT/PE (work -related trauma in 05/2017) HTN - controlled w/ medication - c/w HCTZ 25 mg PO daily, losartan 50 mg PO daily - monitor for acute changes Deconditioning - requires crutches for ambulation - physical therapy consult ordered, recommendations appreciated Prophylactic measures - DVT: anticoagulation held for now due to supratherapeutic INR
[2017-07-16 12:02] VITALS: BP 109/77
[2017-07-16 13:02] LABS: PROTHROMBIN TIME 22.8 Seconds (9.8-13.1)
--- NOTE | 2017-07-16 15:26 | CP.PCM.DIS ---
Provider - Provider Date of Admission: 07/15/17 17:03 Attending physician: Alisia Castro MD Time Spent in preparation of Discharge (in minutes): 15 Diagnosis - Discharge Diagnosis (1) Supratherapeutic INR Status: Acute (2) Dizziness Status: Acute Hospital Course - Lab Results Lab Results: Most Recent Lab Values WBC 5.8 K/uL (4.8-10.8) 07/15/17 05:00 RBC 4.94 Mil/uL (4.40-5.90) 07/15/17 05:00 Hgb 15.6 g/dL (12.0-18.0) 07/15/17 05:00 Hct 45.5 % (35.0-51.0) 07/15/17 05:00 MCV 92.1 fl (80.0-94.0) 07/15/17 05:00 MCH 31.5 pg (27.0-31.0) H 07/15/17 05:00 MCHC 34.2 g/dL (33.0-37.0) 07/15/17 05:00 RDW 12.6 % (11.5-14.5) 07/15/17 05:00 Plt Count 283 K/uL (130-400) 07/15/17 05:00 MPV 7.5 fl (7.2-11.7) 07/15/17 05:00 Neut % (Auto) 58.2 % (50.0-75.0) 07/15/17 05:00 Lymph % (Auto) 28.7 % (20.0-40.0) 07/15/17 05:00 Dickens % (Auto) 6.7 % (0.0-10.0) 07/15/17 05:00 Eos % (Auto) 5.9 % (0.0-4.0) H 07/15/17 05:00 Baso % (Auto) 0.5 % (0.0-2.0) 07/15/17 05:00 Neut # (Auto) 3.4 K/uL (1.8-7.0) 07/15/17 05:00 Lymph # (Auto) 1.7 K/uL (1.0-4.3) 07/15/17 05:00 Dickens # (Auto) 0.4 K/uL (0.0-0.8) 07/15/17 05:00 Eos # (Auto) 0.3 K/uL (0.0-0.7) 07/15/17 05:00 Baso # (Auto) 0.0 K/uL (0.0-0.2) 07/15/17 05:00 PT 22.8 Seconds (9.8-13.1) H D 07/16/17 11:37 INR 2.0 (0.9-1.2) H D 07/16/17 11:37 APTT 66.9 Seconds (25.6-37.1) H 07/15/17 05:00 Sodium 140 mmol/l (132-148) 07/15/17 05:00 Potassium 4.0 MMOL/L (3.6-5.0) 07/15/17 05:00 Chloride 99 mmol/L (98-107) 07/15/17 05:00 Carbon Dioxide 27 mmol/L (22-30) 07/15/17 05:00 Anion Gap 18 (10-20) 07/15/17 05:00 BUN 20 mg/dl (9-20) 07/15/17 05:00 Creatinine 0.9 mg/dl (0.8-1.5) 07/15/17 05:00 Est GFR ( Amer) > 60 07/15/17 05:00 Est GFR (Non-Af Amer) > 60 07/15/17 05:00 Random Glucose 94 mg/dL (75-110) 07/15/17 05:00 Calcium 9.7 mg/dL (8.4-10.2) 07/15/17 05:00 Total Bilirubin 0.7 mg/dl (0.2-1.3) 07/14/17 10:15 AST 87 U/L (17-59) H D 07/14/17 10:15 ALT 197 U/L (21-72) H D 07/14/17 10:15 Alkaline Phosphatase 69 U/L (38-126) 07/14/17 10:15 Total Protein 7.2 G/DL (6.3-8.2) 07/14/17 10:15 Albumin 4.0 g/dL (3.5-5.0) 07/14/17 10:15 Globulin 3.2 gm/dL (2.2-3.9) 07/14/17 10:15 Albumin/Globulin Ratio 1.3 (1.0-2.1) 07/14/17 10:15 Vitamin B12 345 pg/mL (239-931) 07/15/17 15:35 25-OH Vitamin D Total 26.2 NG/ML (30.0-100.0) L 07/15/17 15:35 Folate 16.0 ng/mL 07/15/17 15:35 TSH 3rd Generation 3.24 mIU/ML (0.46-4.68) 07/15/17 15:35 - Hospital Course Hospital Course: The patient is a 52 y/o man w/ pmh of DVT/PE 05/2017 and 07/05/2017 and HTN presents to ED w/ dizziness. The patient on admission had VSS, CBC WNL, CMP WNL , EKG NSR, Head CT w/o negative for hemorrhage, but INR was 4.9. Patient was taking warfarin 5 mg PO daily and just completed bridge to warfarin w/ lovenox 07/13/2017. The patient was admitted to [facility]. Patient had orthostatic BP WNL, carotid US WNL, folateWNL, vit B12 WNL, TSH WNL, and mildly decreased vit D 25-OH at 26. Neurology was consulted. The patient improved w/ meclizine. The patient has been seen, examiend, and deemed medically fit for discharge home. The patient is to follow up w/ [facility] on Tuesday07/18/2017. The patient is to have repeat PT/INR done prior to clinic visit. Patient discharged w/ warfarin 4 mg PO daily for 7 days w/ adjustments to be determined w/ PMD. Discharge Exam - Head Exam Head Exam: ATRAUMATIC, NORMAL INSPECTION, NORMOCEPHALIC - Eye Exam Eye Exam: Normal appearance - ENT Exam ENT Exam: Mucous Membranes Moist - Neck Exam Neck exam: Full Rom - Respiratory Exam Respiratory Exam: Clear to PA & Lateral. absent: Decreased Breath Sounds, Rales , Rhonchi, Wheezes, Respiratory Distress - Cardiovascular Exam Cardiovascular Exam: REGULAR RHYTHM. absent: Tachycardia - GI/Abdominal Exam GI & Abdominal Exam: Normal Bowel Sounds, Soft. absent: Distended, Tenderness - Extremities Exam Extremities exam: calf tenderness Additional comments: chronic left mid calf tenderness - Neurological Exam Neurological exam: Alert, Oriented x3 Additional comments: ambulates w/ crutches - Skin Skin Exam: Dry, Intact, Normal Color, Warm Discharge Plan - Follow Up Plan Condition: FAIR Disposition: HOME/ ROUTINE Referrals: [facility] [place] [Outside]
[2017-07-16 16:11] VITALS: PULSE 82
--- NOTE | 2017-07-16 18:33 | CARD ---
APPROVED REPORT EXAM: Two-dimensional and M-mode echocardiogram with Doppler and color Doppler. Other Information Quality : GoodRhythm : NSR INDICATION Dizziness and Vertigo 2D DIMENSIONS IVSd0.91 (0.7-1.1cm)LVDd3.40 (3.9-5.9cm) LVOT Diameter2.13 (1.8-2.4cm)PWd1.11 (0.7-1.1cm) IVSs1.57 (0.8-1.2cm)LVDs2.39 (2.5-4.0cm) FS (%) 29.5 %PWs1.37 (0.8-1.2cm) LVEF (%)55.0 (>50%) M-Mode DIMENSIONS Left Atrium (MM)3.01 (2.5-4.0cm)IVSd0.97 (0.7-1.1cm) Aortic Root3.47 (2.2-3.7cm)LVDd4.52 (4.0-5.6cm) Aortic Cusp Exc.1.65 (1.5-2.0cm)PWd1.27 (0.7-1.1cm) IVSs1.63 cmFS (%) 44 % LVDs2.54 (2.0-3.8cm)PWs1.71 cm Mitral Valve MV E Rnqmuocm00.0cm/sMV DECEL CHBL170sxFM A Dxmkwoan84.6cm/s MV YXQ16sjZ/A ratio0.7MVA (PHT)4.21cm2 TDI Lateral E' Peak V13.53cm/sMedial E' Peak V5.54cm/sE/Lateral E'3.0 E/Medial E'7.2 Pulmonary Valve PV Peak Apjsrnoy16.5cm/s LEFT VENTRICLE The left ventricle is normal size. There is normal left ventricular wall thickness. The left ventricular function is normal. The left ventricular ejection fraction is within the normal range. There is normal LV segmental wall motion. Transmitral Doppler flow pattern is Grade I-abnormal relaxation pattern. RIGHT VENTRICLE The right ventricle is borderline dilated. There is normal right ventricular wall thickness. Systolic function is borderline reduced. ATRIA The left atrium size is normal. The right atrium size is normal. AORTIC VALVE The aortic valve is mildly thickened. No aortic regurgitation is present. There is no aortic valvular stenosis. MITRAL VALVE The mitral valve is normal in structure. There is no evidence of mitral valve prolapse. There is no mitral valve stenosis. There is no mitral valve regurgitation noted. TRICUSPID VALVE The tricuspid valve is normal in structure. There is no tricuspid valve regurgitation noted. PULMONIC VALVE The pulmonary valve is normal in structure. There is no pulmonic valvular regurgitation. GREAT VESSELS The aortic root is normal in size. The IVC is normal in size and collapses >50% with inspiration. PERICARDIAL EFFUSION The pericardium appears normal. <Conclusion> The left ventricle is normal size. There is normal left ventricular wall thickness. The left ventricular function is normal. The left ventricular ejection fraction is within the normal range. There is normal LV segmental wall motion. Transmitral Doppler flow pattern is Grade I-abnormal relaxation pattern.
== END 2017-07-16 16:40 | disposition home or self-care (01) | DRG 65 ==
LOC: H.ER 09:16 → H.ERHOLD 11:59 → H.MEDSURG1 17:02 → OBSVTOIN 07-15 17:03
PROVIDERS: ADMIT Family Medicine Geriatric Medicine; ATTEND Family Medicine Geriatric Medicine
DX: H81.10 Benign paroxysmal vertigo, unspecified ear (principal); E78.00 Pure hypercholesterolemia, unspecified; G89.29 Other chronic pain; I10 Essential (primary) hypertension; M79.662 Pain in left lower leg; Z79.01 Long term (current) use of anticoagulants; Z86.711 Personal history of pulmonary embolism; Z86.718 Personal history of other venous thrombosis and embolism; Z79.02 Long term (current) use of antithrombotics/antiplatelets